=== PATIENT | male | born 1995 | race Caucasian/White ===

== ENCOUNTER 2020-06-11 14:52 | Emergency (ER) | payer MEDICAID, OTHER ==
[~2020-06-11] VITALS: Ht 185.4 cm; Wt 72.6 kg
[2020-06-11] MEDS ORDERED: ACETAMINOPHEN 325 MG TAB PO ONE (15:45)
[2020-06-11] MEDS ORDERED: SODIUM CHLORIDE 0.9% 1,000 ML IV ONE (15:45)
[2020-06-11 16:03] LABS: Basophils # (auto) 0 10 ^3/uL (0-0.2); Basophils % (auto) 0.2 % (0.0-2.0); Eosinophils # (auto) 0.1 10 ^3/uL (0-0.8); Eosinophils % (auto) 0.9 % (0.0-7.0); Hematocrit 50.9 % (41.0-53.0); Hemoglobin 17.4 g/dL (13.5-17.5); Lymphocytes # (auto) 1.7 10 ^3/uL (0.4-5.4); Lymphocytes % (auto) 14.8 % (10.0-50.0); Mean Corpuscular Hemoglobin 32.1 pg (28.0-32.0); Mean Corpuscular Hgb Conc. 34.2 g/dL (32.0-36.0); Mean Corpuscular Volume 93.8 fL (80.0-100.0); Monocytes # (auto) 1.1 10 ^3/uL (0-1.3); Monocytes % (auto) 9.1 % (0.0-12.0); Neutrophils # (auto) 8.7 10 ^3/uL (1.6-8.6); Platelet Count (auto) 228 10^3/uL (140-450); Red Blood Cells 5.42 10^6/uL (4.5-5.90); Red Cell Distribution Width 13.5 % (11.8-14.3); White Blood Cell 11.6 10^3/uL (4.4-10.8)
[2020-06-11 16:23] LABS: Alanine Aminotransferase 22 U/L (16-61); Albumin 4.5 g/dL (3.4-5.0); Anion Gap 8 (5-15); Aspartate Aminotransferase 15 U/L (15-37); BUN/Creatinine Ratio 15.3; Blood Urea Nitrogen 15 mg/dL (7-18); Calcium 9.5 mg/dL (8.5-10.1); Carbon Dioxide 25 mmol/L (21-32); Chloride 104 mmol/L (98-107); GFR African American 119 mL/min; GFR Non-African American 98 mL/min; Glucose 79 mg/dL (74-106); Sodium 137 mmol/L (136-145)
[2020-06-11 16:28] LABS: Alkaline Phosphatase 79 U/L (45-117); Bilirubin, Total 2.8 mg/dL (0.2-1.0); Total Protein 8.5 g/dL (6.4-8.2)
[2020-06-11 16:44] LABS: Magnesium 2.2 mg/dL (1.6-2.6)
[2020-06-11 17:57] LABS: Urine Bacteria MANY /hpf (None Seen); Urine Blood TRACE /uL (Negative); Urine Hyaline Cast FEW /lpf (0 - 2); Urine Mucus FEW (None Seen); Urine Specific Gravity 1.022 (1.001-1.035); Urine WBC 613 /hpf (0 - 3)
[2020-06-11 18:01] LABS: Alcohol, Urine < 3.0 mg/dL (0-10); Amphetamine Screen, Urine NEGATIVE (NEGATIVE); Barbiturate Scree,Urine NEGATIVE (NEGATIVE); Benzodiazephine Screen, Urine NEGATIVE (NEGATIVE); Cannabinoid Screen, Urine NEGATIVE (NEGATIVE); Cocaine Screen, Urine NEGATIVE (NEGATIVE); Opiate Scree,Urine NEGATIVE (NEGATIVE); Phencyclidine Screen, Urine NEGATIVE (NEGATIVE)
[2020-06-11] MEDS ORDERED: cefTRIAXone SOD 1,000 MG VL IM ONE (18:30)
[2020-06-11] MEDS ORDERED: CIPROFLOXACIN HCL 500 MG TAB PO ONE (19:00)
== END 2020-06-11 19:55 | disposition home or self-care (01) ==
LOC: EDBD 14:52 → ER 14:52
DX: T67.01XA Heatstroke and sunstroke, initial encounter (principal); N39.0 Urinary tract infection, site not specified; E80.6 Other disorders of bilirubin metabolism; F17.210 Nicotine dependence, cigarettes, uncomplicated; X58.XXXA Exposure to other specified factors, initial encounter; Y93.89 Activity, other specified; Y92.89 Other specified places as the place of occurrence of the external cause; Y99.8 Other external cause status
CPT/HCPCS: 36415; 71046; 74176; 80053; 80307; 81001; 82150; 83690; 83735; 84484; 85025; 96372; 99285; J0696

== ENCOUNTER 2020-09-08 23:14 | Emergency (ER) | payer MEDICAID ==
[~2020-09-08] VITALS: Ht 185.4 cm; Wt 77.1 kg
[2020-09-09 01:25] VITALS: BP 112/74
== END 2020-09-09 03:03 | disposition home or self-care (01) ==
LOC: ER 23:14
DX: S02.40EA Zygomatic fracture, right side, initial encounter for closed fracture (principal); S09.90XA Unspecified injury of head, initial encounter; F17.210 Nicotine dependence, cigarettes, uncomplicated; Y08.89XA Assault by other specified means, initial encounter; Y93.89 Activity, other specified; Y92.89 Other specified places as the place of occurrence of the external cause; Y99.8 Other external cause status
CPT/HCPCS: 70450; 70486; 72125

== ENCOUNTER 2022-03-03 23:10 | Emergency (ER) | payer MEDICAID ==
[~2022-03-03] VITALS: Ht 190.5 cm; Wt 81.6 kg
[2022-03-04 02:55] VITALS: BP 105/79
[2022-03-04] MEDS ORDERED: FLUORESCEIN SOD OPTH TEST STRIP OP ONE (07:00)
[2022-03-04] MEDS ORDERED: CIP03OS RIGHTEYE (07:30)
== END 2022-03-04 07:52 | disposition home or self-care (01) ==
LOC: ER 23:10
DX: S05.01XA Injury of conjunctiva and corneal abrasion without foreign body, right eye, initial encounter (principal); F17.210 Nicotine dependence, cigarettes, uncomplicated; X58.XXXA Exposure to other specified factors, initial encounter; Y93.89 Activity, other specified; Y92.89 Other specified places as the place of occurrence of the external cause; Y99.8 Other external cause status

== ENCOUNTER 2023-01-21 10:35 | Emergency (ER) | payer MEDICAID ==
[~2023-01-21] VITALS: Ht 188 cm; Wt 83.6 kg
[~2023-01-21 10:35] MED LIST: CIP03OS RIGHTEYE
[2023-01-21 12:33] VITALS: BP 133/72
[2023-01-21 12:59] LABS: Urine WBC None Seen /hpf (0 - 3)
[2023-01-21 13:28] LABS: Urine Bacteria NONE SEEN /hpf (None Seen); Urine Blood 1+ /uL (Negative); Urine Mucus MODERATE (None Seen); Urine Specific Gravity 1.036 (1.001-1.035)
[2023-01-21 13:33] LABS: Amphetamine Screen, Urine NEGATIVE (NEGATIVE); Barbiturate Scree,Urine NEGATIVE (NEGATIVE); Benzodiazephine Screen, Urine NEGATIVE (NEGATIVE); Cannabinoid Screen, Urine NEGATIVE (NEGATIVE); Cocaine Screen, Urine NEGATIVE (NEGATIVE); Opiate Scree,Urine NEGATIVE (NEGATIVE); Phencyclidine Screen, Urine NEGATIVE (NEGATIVE)
[2023-01-21 13:35] LABS: Basophils # (auto) 0 10 ^3/uL (0-0.2); Basophils % (auto) 0.2 % (0.0-2.0); Eosinophils # (auto) 0.1 10 ^3/uL (0-0.8); Hemoglobin 17.8 g/dL (13.5-17.5); Monocytes # (auto) 0.6 10 ^3/uL (0-1.3)
[2023-01-21 13:37] LABS: Eosinophils % (auto) 0.9 % (0.0-7.0); Hematocrit 51.3 % (41.0-53.0); Lymphocytes # (auto) 2.2 10 ^3/uL (0.4-5.4); Lymphocytes % (auto) 22.3 % (10.0-50.0); Mean Corpuscular Hemoglobin 32.9 pg (28.0-32.0); Mean Corpuscular Hgb Conc. 34.7 g/dL (32.0-36.0); Mean Corpuscular Volume 94.9 fL (80.0-100.0); Monocytes % (auto) 5.8 % (0.0-12.0); Neutrophils # (auto) 7.1 10 ^3/uL (1.6-8.6); Neutrophils % (auto) 70.8 % (37.0-80.0); Nucleated Red Blood Cells % 0.1 %; Red Cell Distribution Width 13.4 % (11.8-14.3)
[2023-01-21 13:44] LABS: Albumin 4.6 g/dL (3.4-5.0); Calcium 9.7 mg/dL (8.5-10.1); Potassium 4.8 mmol/L (3.5-5.1)
[2023-01-21 13:59] LABS: Bilirubin, Total 0.6 mg/dL (0.2-1.0); Total Protein 8.2 g/dL (6.4-8.2)
[2023-01-21 14:34] LABS: BUN/Creatinine Ratio 13.9
== END 2023-01-21 14:44 | disposition home or self-care (01) ==
LOC: ER 10:35
DX: K59.00 Constipation, unspecified (principal); Z00.00 Encounter for general adult medical examination without abnormal findings; F17.210 Nicotine dependence, cigarettes, uncomplicated
CPT/HCPCS: 36415; 74018; 80053; 80307; 80320; 81001; 85025